=== PATIENT | female | born 1995 | race Caucasian/White ===

== ENCOUNTER 2017-04-28 20:41 | Emergency (ER) | payer OTHER ==
[2017-04-28] MEDS ORDERED: BUPIVACAINE HCL/PF 0.5% 30 ML VIAL ONE (21:07)
--- NOTE | 2017-04-28 22:04 | ER PHYSICIAN DOCUMENTATION ---
Physician Documentation [facility] Name:Keri Vincent Age:21 yrs Sex:Female :1995 Arrival Date:04/28/2017 Time:20:41 Bed4 Private MD:Physician, No ED [place] Disposition: 04/29 00:53 Chart complete. tl1 Disposition: 04/28/17 21:50 Discharged to Home/Self Care. Impression: Finger Laceration. - Condition is Good. - Discharge Instructions: FINGER LACERATION - LACERATION, Hand. - Medical Reconciliation form form. - Follow up: Private Physician; When: 10 - 14 days; Reason: Staple/Suture removal. - Problem is new. - Symptoms have improved. HPI: 04/28 20:47 This 21 yrs old Female presents to ER with complaints of Thumb Injury - RIGHT.tl1 20:50 The patient or guardian reports a laceration, clean, 2.5 cm(s). The complaints affect tl1 the dorsal aspect of distal phalanx of right thumb and palmar aspect of distal phalanx of right thumb. Context: resulted from Knife blade on a little multitoool.. Onset: The symptom(s)/episode began/occurred just prior to arrival. Historical: - Allergies: No known drug Allergies; - Tetanus: < 10 years. - Ebola Screening: : Patient negative for fever greater than or equal to 101.5 degrees Fahrenheit, and additional compatible Ebola Virus Disease symptoms. Patient denies exposure to infectious person. Patient denies travel to an Ebola-affected area in the 21 days before illness onset. No symptoms or risks identified at this time. . - Immunization history: Flu Vaccine < 1 year. - Social history: Smoking status: Patient states was never smoker of tobacco. ROS: 20:50 MS/extremity: Positive for laceration. tl1 20:50 All other systems are negative. Exam: 20:50 Constitutional: This is a well developed, well nourished patient who is awake, alert, tl1 and in no acute distress. 20:50 Head/Face: Normocephalic, atraumatic. tl1 20:50 Cardiovascular: Rate: normal. 20:50 Respiratory: Respirations: 20:50 Musculoskeletal/extremity: Extremities: grossly normal except: noted in the dorsal aspect of distal phalanx of right thumb, palmar aspect of distal phalanx of right thumb and right thumbnail: laceration, 2.5 cm u shaped laceration, longitudinally oriented involving the radial tip of the thumb including the radial aspect of the thumbnail. This is clean, linear and does not involve the bone. Both sides of the laceration are bleeding briskly.. Vital Signs: 20:49 BP 137 / 92; Pulse 90; Resp 20; Temp 98; Pulse Ox 91% on R/A; Weight 86.18 kg; Height 5 bw2 ft. 4 in. (162.56 cm); Pain 8/10; 22:02 BP 147 / 60; Pulse 70; Resp 18; Temp 98; Pulse Ox 92% ; Pain 0/10; bw2 20:49 Body Mass Index 32.61 (86.18 kg, 162.56 cm) bw2 Laceration: 20:50 Wound Repair of 2.5cm ( 1.0in ) subcutaneous laceration to dorsal aspect of distal tl1 phalanx of right thumb and palmar aspect of distal phalanx of right thumb. Distal neuro/vascular/tendon intact. Anesthesia: Digital block administered with 3 mls of 0.5% marcaine. Wound prep: Extensive cleansing, Wound explored, Copious irrigation. Skin closed with 7 4-0 Ethilon using Interrupted sutures. Dressed with Bacitracin, tube gauze. Patient tolerated well. MDM: 20:45 Patient medically screened. tl1 20:50 Data reviewed: vital signs, nurses notes, and as a result, I will discharge patient. tl1 Counseling: I had a detailed discussion with the patient and/or guardian regarding: the historical points, exam findings, and any diagnostic results supporting the discharge/admit diagnosis, the need for outpatient follow up, to return to the emergency department if symptoms worsen or persist or if there are any questions or concerns that arise at home. Response to treatment: the patient's symptoms have markedly improved after treatment. Dispensed Medications: 20:55 Drug: Marcaine (0.5 %) 10 mg; Route: Infiltration; Site: wound; bw2 22:03 Drug: HYDROcodone-acetaminophen (5mg/325 mg) 1-2 tabs 1 tabs; Route: PO; bw2 22:03 Follow up: Response: Pharmacy closed - take home med pack bw2 Signatures: Juan Garcia MD MD tl1 Ruperto, Carolin bw2
--- NOTE | 2017-04-28 22:04 | ER NURSING DOCUMENTATION ---
Nurse's Notes [facility] Name:Keri Vincent Age:21 yrs Sex:Female :1995 Arrival Date:04/28/2017 Time:20:41 Bed4 Private MD:Lila Bone Diagnosis:Finger Laceration Presentation: 04/28 20:47 Presenting complaint: Patient states: laceration to left thumb. pt states she is up to [facility] date on tet[place]. Transition of care: patient was not received from another setting of care. 20:47 Acuity: CLAUDIA 4 bw2 20:47 Method Of Arrival: Walk In [facility] Triage Assessment: 20:48 General: Appears in no apparent distress, Behavior is anxious. Pain: Complains of pain bw2 in right thumb Pain began suddenly, 30 min ago. Musculoskeletal: laceration. Injury Description: Laceration sustained to right thumb is bleeding a small amount. Historical: - Allergies: No known drug Allergies; - Tetanus: < 10 years. - Ebola Screening: : Patient negative for fever greater than or equal to 101.5 degrees Fahrenheit, and additional compatible Ebola Virus Disease symptoms. Patient denies exposure to infectious person. Patient denies travel to an Ebola-affected area in the 21 days before illness onset. No symptoms or risks identified at this time. . - Immunization history: Flu Vaccine < 1 year. - Social history: Smoking status: Patient states was never smoker of tobacco. Screenin:07 Infectious Disease Risk None. Abuse screen: Denies threats or abuse. Denies injuries bw2 from another. Nutritional screening: No deficits noted. Assessment: 21:07 See Triage Assessment done by same RN. bw2 Vital Signs: 20:49 BP 137 / 92; Pulse 90; Resp 20; Temp 98; Pulse Ox 91% on R/A; Weight 86.18 kg; Height 5 bw2 ft. 4 in. (162.56 cm); Pain 8/10; 22:02 BP 147 / 60; Pulse 70; Resp 18; Temp 98; Pulse Ox 92% ; Pain 0/10; bw2 20:49 Body Mass Index 32.61 (86.18 kg, 162.56 cm) bw2 ED Course: 20:42 Patient arrived in ED. em2 20:42 Physician, Lila is Private Physician. em2 20:43 Carolin Hickey is Primary Nurse. bw2 20:47 Juan Garcia MD is Attending Physician. tl1 20:47 Triage completed. bw2 21:07 Valuables Remains with patient Call light in reach. Side rails up X2. bw2 21:07 Wound care to laceration located on right thumb was Irrigation Normal Saline Patient bw2 tolerated well. 21:36 Wound care was dressed with bacitracin Kerlix. bw2 Administered Medications: 20:55 Drug: Marcaine (0.5 %) 10 mg; Route: Infiltration; Site: wound; bw2 22:03 Drug: HYDROcodone-acetaminophen (5mg/325 mg) 1-2 tabs 1 tabs; Route: PO; bw2 22:03 Follow up: Response: Pharmacy closed - take home med pack 2 Outcome: 21:50 Discharge ordered by . tl1 22:02 Discharged to home ambulatory. bw2 22:02 Condition: good 22:02 Discharge Assessment: Patient awake, alert and oriented x 3. No cognitive and/or functional deficits noted. Patient verbalized understanding of disposition instructions. 22:02 Discharge instructions given to patient, Instructed on discharge instructions, follow up and referral plans. no drinking with medication, no driving heavy equipment, wound care, Demonstrated understanding of instructions, medications, Prescriptions given X 1. 22:03 Patient left the ED. 2 04/29 10:51 Discharge F/U Call: Unable to reach: no answer lp Signatures: Taya Sullivan RN RN lp David-reg, Kristen-reg em2 Juan Garcia MD MD 1 [place], [facility]
[2017-04-28] MEDS ORDERED: HYDROcodone/APAP PREPAC 5/325 1 TAB TABLET PO ONE (22:12)
== END 2017-04-28 22:03 | disposition home or self-care (01) ==
LOC: ER 20:41
DX: S61.011A Laceration without foreign body of right thumb without damage to nail, initial encounter (principal); W26.0XXA Contact with knife, initial encounter
CPT/HCPCS: 12041; 99284